=== PATIENT | male | born 1935 | race Caucasian/White ===

== ENCOUNTER 2016-10-13 12:06 | Observation (INO) | payer BC, MEDICARE ==
--- OUTSIDE RECORDS SUMMARY | 2016-10-13 12:09 | XMS REPORT | Continuity of Care Document ---
:1935 Author Organization [facility] ([facility]) Address [address] [place] [address] Phone [phone] Care Team Providers Name Role Phone Dominick Bernabe Primary Care Provider [phone] Source Comments This disclosure is being made pursuant to the Care Everywhere program, applicable federal and state laws, and may not contain all informaitonavailable regarding this patient.[facility] ([facility]) Active Allergies and Adverse Reactions Allergen Noted Date Severity Reactions Comments Propoxyphene Rash Current Medications Prescription Sig. Disp. Refills Start Date End Date Status insulin glargine inject 40 Units Active (LANTUS) 100 unit/mL subcutaneously 2 times injection daily. 40 units in am and 40 units at HS Indications: DIABETES MELLITUS atenolol (TENORMIN) Take 25 mg by mouth Active 25 mg tablet daily. folic acid 1 mg Take 1 mg by mouth Active tablet daily. gabapentin Take 300 mg by mouth 3 Active (NEURONTIN) 300 mg times daily. tablet bimatoprost (LUMIGAN) Instill 1 Drop onto the Active 0.01 % Drop eye at bedtime. aspirin 81 mg tablet Take 81 mg by mouth Active daily. simvastatin (ZOCOR) Take 80 mg by mouth Active 80 mg tablet every evening. insulin lispro inject 5 Units Active (HUMALOG) 100 unit/mL subcutaneously 3 times injection daily before meals. lisinopril 5 mg Take 5 mg by mouth Active tablet daily. Indications: Diabetic Nephropathy halobetasol apply 1 application Active (ULTRAVATE) 0.05 % topically 2 times topical ointment daily. Indications: Atopic Dermatitis Ergocalciferol, Take 400 Units by mouth Active Vitamin D2, (VITAMIN daily. Indications: D) 400 unit Tab Vitamin D Deficiency Vitamin C-Vitamin E Take 2 Caps by mouth Active (CRANBERRY daily. CONCENTRATE) cap CALCIUM Take by mouth daily. Active CARBONATE/VITAMIN D3 (CALCIUM 600 + D PO) CINNAMON BARK Take 2 Tabs by mouth Active (CINNAMON PO) daily. Active Problems Problem Noted Date BPH (benign prostatic hyperplasia) 02/22/2013 Proteinuria 08/04/2010 DM type 2 (diabetes mellitus, type 2) 08/04/2010 HTN (hypertension) 08/04/2010 Social History Tobacco Use Types Packs/Day Years Used Date Former Smoker Quit: 08/04/1971 Alcohol Use Drinks/Week oz/Week Comments No Last Filed Vital Signs Vital Sign Reading Time Taken Blood Pressure 150/71 02/22/2013 11:26 AM CDT Pulse 54 02/22/2013 11:26 AM CDT Temperature 36.3 C (97.4 F) 02/22/2013 11:26 AM CDT Respiratory Rate 16 02/22/2013 11:26 AM CDT Height 1.753 m (5' 9") 02/22/2013 11:26 AM CDT Weight 110.224 kg (243 lb) 02/22/2013 11:26 AM CDT Body Mass Index 35.87 02/22/2013 11:26 AM CDT Oxygen Saturation 95% 02/22/2013 11:26 AM CDT Plan of Care Health Maintenance Due Date Last Done Comments Hepatitis B Vaccine (1 of 3 - Primary Series) 1935 Tdap Vaccine 10[birth year]19/1946 DIABETIC: Cholesterol 1954 Diabetic: Hdl 1954 DIABETIC: Hemoglobin A1C 1954 Diabetic: Ldl 1954 DIABETIC: Triglycerides 1953 Td Vaccine 1954 Colonoscopy 1986 Zoster Vaccine 1996 Pneumococcal Vaccine (1 of 2 - PCV13) 2001 DIABETIC: Foot Exam 11/25/2010 DIABETIC: Retinal Eye Exam 11/25/2010 DIABETIC: Microalbumin 08/01/2011 08/01/2010 Influenza Vaccine: Seasonal (#1) 01/13/2016 Results from Last 3 Months Not on file
[2016-10-13] MEDS: POTASSIUM CHLORIDE 20 MEQ in NORMAL SALINE 1,000 ML IV SCH ×2 (14:24→21:33)
[2016-10-13] MEDS: SACCHAROMYCES BOULARDII 250 MG CAPSULE PO SCH ×2 (14:24→20:37)
[2016-10-13 15:36] LABS: Urine Bilirubin 1 mg/dl (NEGATIVE); Urine Ketone 15 mg/dL (NEGATIVE); Urine Nitrite Negative (NEGATIVE); Urine Protein 15 mg/dL (NEGATIVE); Urine Specific Gravity 1.025 SP.GR. (1.005-1.030); Urine Urobilinogen Normal (NORMAL); Urine pH 5.5 pH (5.0-7.0)
[2016-10-13 15:45] LABS: Urine Appearance Slightly Cloudy; Urine Blood 10 /ul (NEGATIVE); Urine Color Dark Yellow; Urine WBC None Seen /hpf (0-5)
[2016-10-13 15:46] LABS: Urine Bacteria TRACE; Urine RBC None Seen /hpf (0-5)
[2016-10-13] MEDS ORDERED: FAMOTIDINE 20 MG in DEXTROSE 5 % IN WATER 100 ML IV SCH ×2 (17:00)
--- NOTE | 2016-10-13 18:23 | HP ---
Chief Complaint - Chief Complaint Date of Service: 10/13/16 Time of Service: 17:53 Chief Complaint: abdominal pain, bloody diarrhea, weight loss History of Present Illness: Oli is a 80 year old male with a history of HTN, DM, UC (previously on Asacol 2 tabs po tid) and bilat knee osteoarthritis (recently saw Dr. Harden on for knee pain and placed on Aleve bid) who presented to Dr. Garcia's office today with c/o abdominal pain, bright red blood stools and weight loss for 1 week. Weight down 8 lbs since 10/05/16. Abdominal pain worse after eating. c/o chills and body aches. denies any dizziness. no n/v. Previously seen Dr. Kennedy for UC. Colonscopy 12/22/06 showed UC extending to 30 cm. biopsy showed severe active chronic ulcerative colitis. upper endoscopy 12/22/06 showed mild gastritis. repeat colonscopy 06/19/15 showed significant diverticulosos (sigmoid) with group of 2-3mm polyps at 50 cm that biopsy showed to be hyperplastic. Outpatient work up revealed significant elevated wbc at 20,000 with 6% bands. patient admitted for further workup. c diff negative. occult stool positive. CXR non-acute. pt started on clear liquid diet with IV fluids infusing. - Patient's Past Medical History Patient History - Medical: Arthritis, Diabetes Type 2, Osteoarthritis, Other Patient History - Cardiac/Respiratory: Hypertension Patient History - Cancer: No Hx of Cancer Patient History - Surgical Procedures: Appendectomy, Back Surgery, Cholecystectomy, Colonoscopy, EGD, Total Hip Replacement, T & A, Vasectomy, Other Patient History - Other: None - Family History Mother Family History - Medical: , Diabetes Type 2 Family History - Cardiac/Respiratory: Coronary Heart Disease, CHF, Hypertension Brother Family History - Medical: Family History - Cancer: Prostate Sister Family History - Cancer: Colon Father Family History - Medical: , Alcohol Abuse, Diabetes Type 2 - Social History Living Situations: spouse Abuse History: No History of abuse Psych History: No pertinent hx Smoking Status: Former smoker Have you smoked in the past 12 months: No Alcohol Use: none Drug Use: none - Immunizations Immunizations Up to Date: No Hx Pneumococcal Vaccination: No History of Influenza Vaccine: No Review Of Systems (GEN) - Review of Systems Generalized/Overall Review: Present: Chills, Malaise, Fatigue, Weight loss EENTM: Present: No Symptoms Reported Respiratory: Present: No Symptoms Reported Cardiac: Present: No Symptoms Reported Abdominal: Present: Abdominal Pain, Diarrhea, Bright blood from rectum. Absent : Nausea, Vomiting, Hematemesis, Constipation, Melena Genitourinary: Present: No Symptoms Reported Musculoskeletal: Present: No Symptoms Reported Neurological: Present: Weakness Skin: Present: No Symptoms Reported Endocrine: Present: No Symptoms Reported Misc: All systems neg except as marked Immunizations: IMMUNIZATION HX Immunizations Up to Date No History of Influenza Vaccine No Hx Pneumococcal Vaccination No Allergies/Adverse Reactions: Allergies Allergy/AdvReac Type Severity Reaction Status Date / Time barium sulfate AdvReac Mild Other Verified 10/13/16 12:22 propoxyphene HCl AdvReac Mild RASH Verified 10/13/16 12:22 [From Darvon] metformin AdvReac Diarrhea Verified 10/13/16 12:22 Home Medications: HOME MEDICATIONS Albuterol Sulfate [Ventolin HFA] 1 puff IH Q4H PRN 10/13/16 [Last Taken Unknown] Aspirin [Aspirin EC] 81 mg PO DAILY 10/13/16 [Last Taken Unknown] Bimatoprost [Lumigan 0.01% Opth Solution] 1 drop OP HS 10/13/16 [Last Taken Unknown] Cholecalciferol (Vitamin D3) [Vitamin D] 2,000 unit PO DAILY 10/13/16 [Last Taken Unknown] Cinnamon Bark [Cinnamon] 1,000 mg PO DAILY 10/13/16 [Last Taken Unknown] Clobetasol Propionate/Emoll [Clobetasol Emollient 0.05% Crm] 1 appl TP BID 10/13 [Last Taken Unknown] Cranberry Fruit Extract [Cranberry] 600 mg PO DAILY 10/13/16 [Last Taken Unknown ] Folic Acid 1 mg PO DAILY 10/13/16 [Last Taken Unknown] Gabapentin 300 mg PO TID 10/13/16 [Last Taken Unknown] Insulin Glargine,Hum.rec.anlog [Lantus] 35 units SC HS 10/13/16 [Last Taken Unknown] Insulin Glargine,Hum.rec.anlog [Lantus] 38 units SC QA 10/13/16 [Last Taken Unknown] Insulin Lispro [Humalog] 0 - 5 unit SQ AC 10/13/16 [Last Taken Unknown] Insulin Lispro [Humalog] 10 units SC AC 10/13/16 [Last Taken Unknown] Lisinopril [Zestril] 5 mg PO BID 10/13/16 [Last Taken Unknown] Magnesium 250 mg PO DAILY 10/13/16 [Last Taken Unknown] Naproxen Sodium [Aleve] 440 mg PO DAILY 10/13/16 [Last Taken Unknown] Simvastatin [Zocor] 80 mg PO DAILY 10/13/16 [Last Taken Unknown] Exam - Exam Vital Signs: Vital Signs - Last Taken Temp 36.8 C 10/13/16 13:03 Pulse 97 10/13/16 13:20 Resp 18 10/13/16 13:03 BP 167/69 10/13/16 13:03 Pulse Ox 96 10/13/16 13:03 Constitutional: Present: Alert, Oriented x3, Cooperative, No distress ENT Exam: Present: hearing grossly normal Eye Exam: bilateral eye: normal inspection Neck: Present: full range of motion, supple Back Exam: Present: normal inspection Breasts: Present: Exam deferred Respiratory: Present: lungs clear, normal breath sounds, no respiratory distress Cardiovascular/Chest: Present: normal peripheral pulses, regular rate, rhythm, no chest tenderness Peripheral Pulses: dorsalis-pedis (R): 2+, dorsalis-pedis (L): 2+, radial (R): 2 +, radial (L): 2+ Abdomen: Present: tender - diffuse abdominal tenderness to palpation, guarding, other - hyperactive bowel sounds /Rectal: Present: Exam deferred Extremity: Present: non-tender, normal inspection Skin Exam: Present: normal color, warm/dry, no cyanosis Neurologic: Present: alert, oriented x 3 Diagnostic Studies: Abnormal Lab Results 10/13/16 10/13/16 Range/Units 15:35 15:51 Urine Protein 15 H (NEGATIVE) mg/dL Urine Blood 10 H (NEGATIVE) /ul Urine Bilirubin 1 H (NEGATIVE) mg/dl Stool Occult Blood Positive H Laboratory Results Urine Color Dark yellow 10/13/16 15:35 Urine Appearance Slightly cloudy 10/13/16 15:35 Urine pH 5.5 pH (5.0-7.0) 10/13/16 15:35 Ur Specific [place] 1.025 SP.GR. (1.005-1.030) 10/13/16 15:35 Urine Protein 15 mg/dL (NEGATIVE) H 10/13/16 15:35 Urine Glucose (UA) Negative mg/dL (NEGATIVE) 10/13/16 15:35 Urine Ketones 15 mg/dL (NEGATIVE) 10/13/16 15:35 Urine Blood 10 /ul (NEGATIVE) H 10/13/16 15:35 Urine Nitrate Negative (NEGATIVE) 10/13/16 15:35 Urine Bilirubin 1 mg/dl (NEGATIVE) H 10/13/16 15:35 Urine Ictotest Negative (NEGATIVE) 10/13/16 15:35 Prot Sulfosalicylic Acd Negative mg/dL (0) 10/13/16 15:35 Urine Urobilinogen Normal EU/dl (NORMAL) 10/13/16 15:35 Ur Leukocyte Esterase Negative /ul (NEGATIVE) 10/13/16 15:35 Urine RBC None seen /hpf (0-5) 10/13/16 15:35 Urine WBC None seen /hpf (0-5) 10/13/16 15:35 Ur Epithelial Cells None seen /hpf (0-5) 10/13/16 15:35 Urine Bacteria Trace (NONE) 10/13/16 15:35 Urine Culture Comments No culture indicated 10/13/16 15:35 Stool Occult Blood Positive H 10/13/16 15:51 Stl C.difficile Tox A&B Negative (Negative) 10/13/16 15:35 Laboratory Tests 10/13/16 11:38 WBC 20.5 H Hgb 14.2 Hct 43.4 Plt Count 423 Band Neuts % (Manual) 6 H Laboratory Tests 10/13/16 11:38 Sodium 137 Potassium 3.6 Chloride 99 Carbon Dioxide 26.3 Anion Gap 15.3 H BUN 25 H Creatinine 1.07 Random Glucose 64 L AST 16 ALT 18 L Alkaline Phosphatase 118 Assessment/Plan - Narrative Narrative: GI Bleed - bright red blood - likely lower GI bleed - pepcid iv ordered - probiotics ordered - ? ulcerative colitis flare - c diff negative (10/13/16) - CT abdomen / pelvis pending Ulcerative colitis - ? acute flare given frequent loose bloody stools with severe cramps, rapid weight loss, chills/body aches - awaiting CT of abdomen and pelvis - ESR and crp pending - if diagnosed with ulcerative colitis flare recommend: - lialda 4.8 gm po daily x 8 weeks - methylprednisolone 20 mg iv q 8 hours - cipro 400 mg iv q 12 hours - flagyl 500 mg iv q 8 hours - heparin for vte proph. - start clear diet and advance as tolerated. - likely need flex sig or colonscopy weight loss - likely due to UC flare - glucerna supplements - encourage po intake as able to increase diet Chronic medical conditions - Diabetes, stable - continue lantus as blood sugar allows - check ac accuchecks with sliding scale as needed. - HTN - continue home medications - vital signs q 4 hours. - Assessment/Plan (1) GI bleed Problem: Acute Qualifiers: GI bleed type/associated pathology: unspecified gastrointestinal hemorrhage type Qualified Code(s): K92.2 - Gastrointestinal hemorrhage, unspecified (2) Ulcerative colitis Problem: Acute Qualifiers: Ulcerative colitis location: unspecified ulcerative colitis location Digestive disease complication type: unspecified complication Qualified Code(s ): K51.919 - Ulcerative colitis, unspecified with unspecified complications (3) HTN (hypertension) Problem: Chronic Qualifiers: Hypertension type: essential hypertension Qualified Code(s): I10 - Essential (primary) hypertension (4) Diabetes Problem: Chronic Qualifiers: Diabetes mellitus type: type 2 Diabetes mellitus complication status: with unspecified complications Diabetes mellitus mcfp insulin use: with supervisor intermediates use Qualified Code(s): E11.8 - Type 2 diabetes mellitus with unspecified complications; Z79.4 - group home (current) use of insulin (5) Weight loss Problem: Acute
--- NOTE | 2016-10-13 18:36 | PN ---
Progess Note - Interim Narrative: 10/13/16 18:21 Patient is a 80-year-old WM with a H/O HTN -1998, [id number] HLD, neuropathy, UC DXed 2004 and off treatment for the last few years started having fever, chills , weight loss with bloody stools since 10/05/16 who was seen and examined today at the clinic. He has lost approximately 8-10 pounds. Patient's last colonoscopy was in 06/2015 [only up to hepatic flexure], which did not show UC and had significant diverticulosis, hyperplastic polyps 2 and hemorrhoids. Underwent barium enema in 07/31- significant diverticulosis. Significant findings were WBC 20 K, 6% bands, CRP 11, and was heme positive. C. difficile negative. Stool cultures pending. X-ray of abdomen shows multiple nondilated large and small bowels with air-fluid levels c/w gastroenteritis. Patient had mid epigastric tenderness w/o evidence of an acute abdomen. Discussed with GI fellow at [facility] [ Dr. Ballesteros], who recommended patient requiring a flexible sigmoidoscopy prior to treatment being initiated. Discussed patient with Ange Savage [SENIOR ARCHITECT/DESIGN MANAGER] who will complete the H&P and transfer the patient to the hospital, which has a mechanic chief. Dr. Radha Pikn.
[2016-10-13 18:47] VITALS: BP 150/57
[2016-10-13 20:08] LABS: Hematocrit 38.2 % (42.0-52.0); Hemoglobin 12.7 gm/dL (13.5-18.0); Mean Cell Volume 86.2 fl (78-100); Mean Corpuscular Hemoglobin 28.7 pg (27-31); Mean Corpuscular Hgb Conc 33.2 g/dl (32-36); Mean Platelet Volume 9.1 fl (6.0-9.5); Platelet Count 391 K/mm3 (150-450); Red Blood Count 4.43 M/mm3 (4.7-6.0); Red Cell Distribution Width 13.3 % (11.5-14.0); White Blood Count 15.3 K/mm3 (4.0-10.5)
[2016-10-13 20:12] LABS: Total Cells Counted 100
[2016-10-13 20:49] LABS: Eosinophil 1 % (0-3); Immature Granulocyte 3 (0-1); Lymphocyte 10 % (20-51); Monocyte 3 % (0-9); Neutrophil 83 % (42-75); Neutrophil # 12.7 K/mm3 (1.3-6.0); Platelet Estimate Normal (NORMAL)
[2016-10-13 20:53] LABS: RBC Morphology Normal (NORMAL)
[2016-10-13] MEDS ORDERED: INSULIN GLARGINE,HUM.REC.ANLOG 100 UNITS/ML VIAL SC SCH (21:00)
[2016-10-13 21:13] LABS: Amylase * 12 U/L (25-115); Lipase 46 U/L (73-393)
--- NOTE | 2016-10-13 21:16 | DS ---
Transfer Discharge Summary - Diagnosis(s)/Problems (1) GI bleed Problem: Acute (2) Ulcerative colitis Problem: Acute (3) Diabetes Problem: Chronic (4) HTN (hypertension) Problem: Chronic - Course Description of Stay: Mr. Jama is a 80-yr-old WM pt who saw his PCP on 10/13 with complaints of Abdominal Pain & bloody stools that had gone on for 1 week. He also reported a weight loss of about 8lbs during the 1 week of illness. He His lab work showed he had Leukocytosis with WBC of 20,000 and a band of 6. PMH significant for HTN , DM & Ulcerative colitis. Pt was admitted under observation status, but while in the med- surge floor, he continued to have Abdominal pain that was accompanied with bloody stools. His hgb dropped from 14.0 to 12.7 in about 6 hours. Arrangements made to transfer pt to a tertiary care center with a full GI service due to possibility of requiring an emergent procedure to halt the bleeding and to determine etiology of diarrhea prior to initiation of treatment. I spoke with Dr. Brenda Haney who accepted transfer to the ED where pt would be triaged. Pt was in a stable condition to be transferred. Explained the plan of treatment with the pt and he was agreeable. . Procedures Performed: none - Results and Findings Results and Findings: Laboratory Results - last 24 hr 10/13/16 10/13/16 10/13/16 15:35 15:35 15:51 WBC RBC Hgb Hct MCV MCH MCHC RDW Plt Count MPV Neutrophils % (Manual) Lymphocytes % (Manual) Monocytes % (Manual) Eosinophils % (Manual) Immature Granulocytes Neutrophils # (Manual) Lymphocytes # (Manual) Monocytes # (Manual) Eosinophils # (Manual) Platelet Estimate RBC Morphology ESR C-Reactive Prot, Quant Urine Color Dark yellow Urine Appearance Slightly cloudy Urine pH 5.5 Ur Specific [place] 1.025 Urine Protein 15 H Urine Glucose (UA) Negative Urine Ketones 15 Urine Blood 10 H Urine Nitrate Negative Urine Bilirubin 1 H Urine Ictotest Negative Prot Sulfosalicylic Acd Negative Urine Urobilinogen Normal Ur Leukocyte Esterase Negative Urine RBC None seen Urine WBC None seen Ur Epithelial Cells None seen Urine Bacteria Trace Urine Culture Comments No culture indicated Stool Occult Blood Positive H Stl C.difficile Tox A&B Negative 10/13/16 10/13/16 10/13/16 18:02 18:02 20:05 WBC 15.3 H D RBC 4.43 L Hgb 12.7 L Hct 38.2 L MCV 86.2 MCH 28.7 MCHC 33.2 RDW 13.3 Plt Count 391 MPV 9.1 Neutrophils % (Manual) 83 H Lymphocytes % (Manual) 10 L Monocytes % (Manual) 3 Eosinophils % (Manual) 1 Immature Granulocytes 3 H Neutrophils # (Manual) 12.7 H Lymphocytes # (Manual) 1.5 Monocytes # (Manual) 0.5 Eosinophils # (Manual) 0.2 Platelet Estimate Normal RBC Morphology Normal ESR 72 H C-Reactive Prot, Quant 11.0 H Urine Color Urine Appearance Urine pH Ur Specific [place] Urine Protein Urine Glucose (UA) Urine Ketones Urine Blood Urine Nitrate Urine Bilirubin Urine Ictotest Prot Sulfosalicylic Acd Urine Urobilinogen Ur Leukocyte Esterase Urine RBC Urine WBC Ur Epithelial Cells Urine Bacteria Urine Culture Comments Stool Occult Blood Stl C.difficile Tox A&B - Medications Medications: Active Medications Potassium Chloride 20 meq/ (Sodium Chloride) 1,010 mls @ 125 mls/hr IV .[id number] [facility] Stop: 11/12/16 13:01 Last Admin: 10/13/16 14:24 Dose: 125 mls/hr Famotidine 20 mg/ Dextrose/ (Water) 102 mls @ 400 mls/hr IV BIDAC [facility] Stop: 11/12/16 17:01 Last Infusion: 10/13/16 18:01 Dose: Infused Insulin Glargine (Lantus) 10 units SC BID GABRIEL Stop: 11/12/16 21:01 Last Admin: 10/13/16 20:38 Dose: 10 units Saccharomyces Boulardii (Florastor) 250 mg PO BID GABRIEL Stop: 11/12/16 12:31 Last Admin: 10/13/16 20:37 Dose: 250 mg - Disposition Disposition: [facility] Condition: Good Discharge Date: 10/13/16 Discharge Time: 22:00
== END 2016-10-13 21:45 | disposition short-term general hospital (02) ==
LOC: MS 12:06
PROVIDERS: ADMIT Internal Medicine; ATTEND Internal Medicine
DX: K92.1 Melena (principal); K51.90 Ulcerative colitis, unspecified, without complications; R63.4 Abnormal weight loss; I10 Essential (primary) hypertension; E11.8 Type 2 diabetes mellitus with unspecified complications; Z79.4 Long term (current) use of insulin; A08.4 Viral intestinal infection, unspecified
CPT/HCPCS: 36415; 71020; 74020; 81001; 82150; 82272; 83605; 83690; 85007; 85025; 85652; 86140; 87040; 87045; 87046; 87493; 96365; 96372; G0378; G0379